=== PATIENT | male | born 1975 | race American Indian/Alaskan Native ===

== ENCOUNTER 2017-05-28 13:53 | Emergency (ER) | payer SELFPAY ==
[2017-05-28] MEDS ORDERED: MOTRIN PO ONE (16:17)
[2017-05-28] MEDS ORDERED: TYLENOL PO ONE (16:17)
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
[2017-05-28 19:46] VITALS: BP 147/83
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
== END 2017-05-28 19:47 | disposition home or self-care (01) ==
LOC: ED 13:53
DX: S66.911A Strain of unspecified muscle, fascia and tendon at wrist and hand level, right hand, initial encounter (principal); S76.911A Strain of unspecified muscles, fascia and tendons at thigh level, right thigh, initial encounter; F17.200 Nicotine dependence, unspecified, uncomplicated; V43.62XA Car passenger injured in collision with other type car in traffic accident, initial encounter; Y93.89 Activity, other specified; Y92.89 Other specified places as the place of occurrence of the external cause; Y99.8 Other external cause status
CPT/HCPCS: 99283